=== PATIENT | female | born 1940 | race Native Hawaiian/Other Pacific Islander ===

== ENCOUNTER 2017-06-28 23:00 | Emergency (ER) | payer MEDICARE ==
[2017-06-28] MEDS ORDERED: Enalaprilat 2.5 MG/2 ML IVP STA (23:38)
[2017-06-28 23:41] LABS: BASO # 0.1 K/uL (0.0-0.2); BASO % 1.4 % (0.0-2.0); EOS # 0.4 K/uL (0.0-0.7); EOS % 5.1 % (0.0-4.0); HEMOGLOBIN 12.9 g/dL (11.0-16.0); LYMPH # 1.8 K/uL (1.0-4.3); LYMPH % 20.6 % (20.0-40.0); MEAN CORPUSCULAR HEMOGLOBIN 30.2 pg (27.0-31.0); MEAN PLATELET VOLUME 7.7 fL (7.2-11.7); MONO # 0.6 K/uL (0.0-0.8); MONO % 6.7 % (0.0-10.0); NEUT # 5.8 K/uL (1.8-7.0); NEUT % 66.2 % (50.0-75.0); RBC 4.28 Mil/uL (3.80-5.20); RED CELL DISTRIBUTION WIDTH 14.6 % (11.5-14.5); WHITE BLOOD COUNT 8.7 K/uL (4.8-10.8)
[2017-06-28 23:42] LABS: MEAN CELL VOLUME 88.8 fL (81.0-99.0)
[2017-06-28] MEDS ORDERED: Enalaprilat 2.5 MG/2 ML ONE (23:49)
[2017-06-29] LABS: ALBUMIN 3.9 g/dL (3.5-5.0); ALT/SGPT 21 U/L (9-52); AST/SGOT 33 U/L (14-36); BLOOD UREA NITROGEN 24 mg/dL (7-17); CALCIUM 9.6 mg/dl (8.6-10.4); GFR AFRICAN-AMERICAN > 60; GFR NON-AFRICAN AMERICAN > 60
[2017-06-29 00:12] LABS: B-TYPE NATRIURETIC PEPTIDE 1520 pg/mL (0-900)
--- NOTE | 2017-06-29 00:54 | C.PDOC ---
Time Seen by Provider: 06/28/17 23:18 Chief Complaint (Nursing): High Blood Pressure History Per: Patient Onset/Duration Of Symptoms: Hrs Current Symptoms Are (Timing): Still Present Associated Symptoms: Dyspnea Severity: Moderate Exacerbating Factor(s): Pos: None Additional History Per: Prior Records Past Medical History Reviewed: Historical Data, Nursing Documentation, Vital Signs Vital Signs: Last Vital Signs Temp Pulse 59 L 06/29/17 00:57 Resp 15 06/29/17 00:57 BP 174/69 H 06/29/17 00:57 Pulse Ox 97 06/29/17 00:57 - Medical History PMH: HTN, Hypercholesterolemia Surgical History: Coronary Stent (5 years) Family History: States: Unknown Family Hx - Social History Hx Alcohol Use: No Hx Substance Use: No - Immunization History Hx Tetanus Toxoid Vaccination: Yes Hx Influenza Vaccination: Yes Hx Pneumococcal Vaccination: No Review Of Systems Except As Marked, All Systems Reviewed And Found Negative. Constitutional: Negative for: Fever Cardiovascular: Negative for: Chest Pain Respiratory: Negative for: Hemoptysis Gastrointestinal: Negative for: Vomiting, Abdominal Pain Skin: Negative for: Rash Neurological: Negative for: Weakness, Numbness, Headache Psych: Positive for: Anxiety Physical Exam - Physical Exam Appears: Non-toxic, No Acute Distress Skin: Normal Color, Warm, Dry, No Rash Head: Atraumatic, Normacephalic Eye(s): bilateral: PERRL, EOMI Neck: Normal ROM, Supple Cardiovascular: Rhythm Regular Respiratory: Normal Breath Sounds, No Accessory Muscle Use Gastrointestinal/Abdominal: Soft, No Tenderness Back: No CVA Tenderness Extremity: Normal ROM, No Pedal Edema, No Calf Tenderness Neurological/Psych: Oriented x3, Normal Motor, Normal Sensation ED Course And Treatment - Laboratory Results Result Diagrams: 06/28/17 23:39 06/28/17 23:39 O2 Sat by Pulse Oximetry: 97 Pulse Ox Interpretation: Normal - Radiology CXR: Interpreted by Me, Viewed By Me CXR Interpretation: Yes: No Acute Disease, Heart Size (wnl) ED EKG Interpretation - Interpreted by ED Physician Interpreted by ED Physician: Yes - Type Type: 12 lead EKG Comparison: No previous EKG avail. - Rhythm Rhythm: Normal sinus - Rate BPM: 60 - Morphology Morphology:: Non Specific ST/T changes - Other Findings Other Findings: LVH with strain (?) Progress - Interventions Interventions:: Observation - Medications Administered Intravenous: Antihypertensive - Data Reviewed Data Reviewed: Lab, Diagnostic imaging, EKG, Old records - Patient Status Patient status: Partially improved Disposition - Disposition Disposition Time: 01:00 Condition: FAIR - Clinical Impression Clinical Impression: Uncontrolled hypertension Physician Patient Turnover Patient Signed Over To: Steve Sims Handoff Comments: to reassess/dispo pt after med.
[2017-06-29 02:05] VITALS: BP 159/68; PULSE 78; RESP 20; TEMP 98; O2SAT 98
--- NOTE | 2017-06-29 07:50 | RAD ---
Chest x-ray single frontal view History: Hypertension. Comparison: None available. Findings: Biapical pleural thickening with upper lobe granulomatous changes. Small nodular density in the medial right lung base may represent prominent vessel on end versus small nodule and or granuloma. Mild patchy increased markings at the left lung base. Tortuous aorta. Degenerative changes in the spine shoulders. Impression: Biapical pleural thickening with upper lobe granulomatous changes. Small nodular density in the medial right lung base may represent prominent vessel on end versus small nodule and or granuloma. Mild patchy increased markings at the left lung base. Tortuous aorta. Degenerative changes in the spine shoulders.
--- NOTE | 2017-07-01 19:32 | CARD ---
APPROVED REPORT EKG Measurement Heart [id number] <Conclusion> Normal sinus rhythm Septal infarct, age undetermined ST & T wave abnormality, consider inferior ischemia ST & T wave abnormality, consider anterolateral ischemia Abnormal ECG
== END 2017-06-29 02:06 | disposition home or self-care (01) ==
LOC: C.ER 23:00
DX: I10 Essential (primary) hypertension (principal)